=== PATIENT | male | born 1945 | race African-American/Black ===

== ENCOUNTER 2019-01-21 12:05 | Inpatient (IN) | payer MEDICARE, MEDICAID ==
[~2019-01-21] VITALS: Ht 175.3 cm; Wt 75.5 kg
[~2019-01-21 12:05] MED LIST: AMLO10TA80 PO; ASPI-1159 PO; CHOL100044 PO; DOCU-138 PO; DONE5TAB33 PO; ESOM40CA PO; MEMA10TA2 PO; METO-539 PO; RISP0.5T19 PO; ROSU10TA PO; SERT25TA PO; TAMS-11 PO
[2019-01-21] MEDS ORDERED: ONDANSETRON HCL 4MG/2ML INJ IV STA (12:20)
[2019-01-21] MEDS ORDERED: CEFEPIME 1,000 MG in DEXTROSE 5% WATER 50 ML IV STA (12:20)
[2019-01-21] MEDS ORDERED: VANCOMYCIN 1 G PREMIX 200 ML IV ONE (12:30)
[2019-01-21 13:20] LABS: BASOPHILS % 0.8 % (0.0-2.0); EOSINOPHILS % 5.9 % (0.0-5.0); HEMATOCRIT. 32.8 % (42.0-52.0); HEMOGLOBIN. 10.7 g/dL (14.0-18.0); LYMPHOCYTES % 25.9 % (20.0-50.0); MEAN CORPUSCULAR HEMOGLOBIN 31.7 pg (28.0-32.0); MEAN CORPUSCULAR VOLUME 96.7 fL (80.0-94.0); MEAN PLATELET VOLUME 8.3 fl (7.4-10.4); MONOCYTES % 9.6 % (2.0-8.0); NEUTROPHILS % 57.8 % (40.0-76.0); PLATELET 203 x1000/uL (130-400); RED BLOOD CELL COUNT 3.39 mill/uL (4.7-6.1); RED CELL DISTRIBUTION WIDTH 15.5 % (11.6-14.6)
[2019-01-21 13:25] LABS: INR 1.1; PROTHROMBIN TIME 11.2 sec (9.1-11.1)
[2019-01-21 13:26] LABS: CHLORIDE 102 mEq/L (98-107)
[2019-01-21] MEDS ORDERED: ACETAMINOPHEN 325MG TABLET PO PRN (17:45)
[2019-01-21] MEDS ORDERED: HYDROCODONE/ACETAMINOPHEN 5/325MG TABLET PO PRN (17:45)
[2019-01-21] MEDS ORDERED: LORAZEPAM 0.5MG TABLET PO PRN (17:45)
[2019-01-21] MEDS ORDERED: DOCUSATE SODIUM 100MG CAPSULE PO PRN (17:45)
[2019-01-21] MEDS ORDERED: ONDANSETRON HCL 4MG/2ML INJ IV PRN (17:45)
[2019-01-21] MEDS ORDERED: IPRATROPIUM/ALBUTEROL 0.5-3(2.5)MG/3ML NEB INH PRN (17:45)
[2019-01-21] MEDS ORDERED: TAMSULOSIN HCL 0.4MG SR CAPSULE PO NR (20:30)
[2019-01-21] MEDS: METOPROLOL TARTRATE 25MG TABLET PO SCH (21:00)
[2019-01-21] MEDS: CLONIDINE 0.1MG TABLET PO PRN (21:00)
[2019-01-21] MEDS ORDERED: DONEPEZIL HCL 5MG TABLET PO NR (21:00)
[2019-01-21 22:02] LABS: METHADONE URINE SCREEN NEGATIVE (NEGATIVE); OPIATES URINE SCREEN NEGATIVE (NEGATIVE)
[2019-01-21 22:03] LABS: *AMPHETAMINES SCREEN URINE NEGATIVE (NEGATIVE); *BARBITURATES SCREEN URINE NEGATIVE (NEGATIVE); *BENZODIAZEPINES SCREEN URINE NEGATIVE (NEGATIVE); *COCAINE SCREEN URINE NEGATIVE (NEGATIVE); CANNABINOID URINE SCREEN NEGATIVE (NEGATIVE); PHENCYCLIDINE URINE SCREEN NEGATIVE (NEGATIVE)
[2019-01-22] VITALS (17 sets, daily range): BP systolic 136–186; BP diastolic 80–96
[2019-01-22 05:44] LABS: BASOPHILS % 0.8 % (0.0-2.0); EOSINOPHILS % 6.5 % (0.0-5.0); HEMATOCRIT. 33.5 % (42.0-52.0); HEMOGLOBIN. 11.1 g/dL (14.0-18.0); LYMPHOCYTES % 27.6 % (20.0-50.0); MEAN CORPUSCULAR HEMOGLOBIN 31.8 pg (28.0-32.0); MEAN CORPUSCULAR VOLUME 96.3 fL (80.0-94.0); MEAN PLATELET VOLUME 8.3 fl (7.4-10.4); MONOCYTES % 10.2 % (2.0-8.0); NEUTROPHILS % 54.9 % (40.0-76.0); PLATELET 183 x1000/uL (130-400); RED BLOOD CELL COUNT 3.48 mill/uL (4.7-6.1); RED CELL DISTRIBUTION WIDTH 15.5 % (11.6-14.6)
[2019-01-22 05:50] LABS: PHOSPHORUS 4.8 mg/dL (2.5-4.9)
[2019-01-22 06:09] LABS: FOLIC ACID (FOLATE) SERUM 9.5 ng/mL (>5.38)
[2019-01-22] MEDS ORDERED: LIDOCAINE HCL 1% 20ML VIAL (Pyxis) INJ ONE ×2 (09:38→10:05)
[2019-01-22] MEDS ORDERED: SODIUM BICARBONATE 4% (2.4MEQ) 5ML VIAL IV ONE (09:52)
[2019-01-22] MEDS ORDERED: IOHEXOL-300 100 ML BOTTLE ONE (09:52)
[2019-01-22] MEDS ORDERED: FENTANYL CITRATE/PF 50MCG/ML 2ML VIAL ONE (10:48)
[2019-01-22] MEDS ORDERED: MIDAZOLAM HCL 2 MG/2 ML VIAL ONE (11:09)
[2019-01-22] MEDS ORDERED: MIDAZOLAM HCL 2 MG/2 ML VIAL IV ONE (11:30)
[2019-01-22] MEDS ORDERED: FENTANYL CITRATE/PF 50MCG/ML 2ML VIAL IV ONE (11:30)
[2019-01-22] MEDS: CHOLECALCIFEROL (D3) 1000 UNIT TABLET PO SCH (14:10)
[2019-01-22] MEDS: SERTRALINE HCL 25MG TABLET PO SCH (14:11)
[2019-01-22] MEDS: MEMANTINE HCL 10MG TABLET PO SCH ×2 (14:11→17:39)
[2019-01-22] MEDS: OMEPRAZOLE 20MG CAPSULE EXTENDED RELEASE PO SCH (14:11)
[2019-01-22] MEDS: DOCUSATE SODIUM 100MG CAPSULE PO SCH (14:11)
[2019-01-22] MEDS: ASPIRIN 81MG TABLET PO SCH (14:12)
[2019-01-22] MEDS: RISPERIDONE 0.5MG TABLET PO SCH (14:12)
[2019-01-22] MEDS: AMLODIPINE 10MG TABLET PO SCH (14:13)
[2019-01-22] MEDS: METOPROLOL TARTRATE 25MG TABLET PO SCH (21:00)
[2019-01-22] MEDS: DONEPEZIL HCL 5MG TABLET PO SCH (21:59)
[2019-01-22] MEDS: TAMSULOSIN HCL 0.4MG SR CAPSULE PO SCH (22:00)
[2019-01-23] VITALS: BP 142/80
[2019-01-23 04:00] VITALS: BP 144/89
[2019-01-23] MEDS: OMEPRAZOLE 20MG CAPSULE EXTENDED RELEASE PO SCH (06:28)
[2019-01-23 07:03] LABS: EOSINOPHILS % 6.5 % (0.0-5.0); HEMATOCRIT. 31.7 % (42.0-52.0); HEMOGLOBIN. 10.5 g/dL (14.0-18.0); LYMPHOCYTES % 23.5 % (20.0-50.0); MEAN CORPUSCULAR HEMOGLOBIN 31.9 pg (28.0-32.0); MEAN CORPUSCULAR VOLUME 96.1 fL (80.0-94.0); MEAN PLATELET VOLUME 8.2 fl (7.4-10.4); MONOCYTES % 9.3 % (2.0-8.0); NEUTROPHILS % 59.7 % (40.0-76.0); PLATELET 185 x1000/uL (130-400); RED CELL DISTRIBUTION WIDTH 15.5 % (11.6-14.6)
[2019-01-23 08:04] VITALS: BP 131/67
[2019-01-23] MEDS: METOPROLOL TARTRATE 25MG TABLET PO SCH ×2 (08:53→22:22)
[2019-01-23] MEDS: AMLODIPINE 10MG TABLET PO SCH (08:53)
[2019-01-23] MEDS: SERTRALINE HCL 25MG TABLET PO SCH (09:02)
[2019-01-23] MEDS: MEMANTINE HCL 10MG TABLET PO SCH ×2 (09:02→16:02)
[2019-01-23] MEDS: DOCUSATE SODIUM 100MG CAPSULE PO SCH (09:02)
[2019-01-23] MEDS: RISPERIDONE 0.5MG TABLET PO SCH (09:02)
[2019-01-23] MEDS: CHOLECALCIFEROL (D3) 1000 UNIT TABLET PO SCH (09:02)
[2019-01-23] MEDS: ASPIRIN 81MG TABLET PO SCH (09:02)
[2019-01-23 12:00] VITALS: BP 127/66
[2019-01-23] MEDS ORDERED: VANCOMYCIN 1 G PREMIX 200 ML IV NR (14:30)
[2019-01-23] MEDS ORDERED: IOHEXOL-350 100 ML BOTTLE ONE (15:14)
[2019-01-23] MEDS: CLONIDINE 0.1MG TABLET PO PRN (16:02)
[2019-01-23 16:11] VITALS: BP 160/80
[2019-01-23 20:00] VITALS: BP 151/81
[2019-01-23] MEDS: TAMSULOSIN HCL 0.4MG SR CAPSULE PO SCH (22:22)
[2019-01-23] MEDS: DONEPEZIL HCL 5MG TABLET PO SCH (22:22)
[2019-01-24] VITALS: BP 129/79
[2019-01-24 04:00] VITALS: BP 152/50
[2019-01-24] MEDS: OMEPRAZOLE 20MG CAPSULE EXTENDED RELEASE PO SCH (06:32)
[2019-01-24 08:00] VITALS: BP 162/84
[2019-01-24] MEDS: MEMANTINE HCL 10MG TABLET PO SCH ×2 (09:19→18:00)
[2019-01-24] MEDS: DOCUSATE SODIUM 100MG CAPSULE PO SCH (09:19)
[2019-01-24] MEDS: RISPERIDONE 0.5MG TABLET PO SCH (09:19)
[2019-01-24] MEDS: CHOLECALCIFEROL (D3) 1000 UNIT TABLET PO SCH (09:20)
[2019-01-24] MEDS: ASPIRIN 81MG TABLET PO SCH (09:20)
[2019-01-24] MEDS: METOPROLOL TARTRATE 25MG TABLET PO SCH ×2 (09:20→21:53)
[2019-01-24] MEDS: SERTRALINE HCL 25MG TABLET PO SCH (09:21)
[2019-01-24] MEDS: AMLODIPINE 10MG TABLET PO SCH (09:21)
[2019-01-24 12:00] VITALS: BP 149/82
[2019-01-24 16:00] VITALS: BP 149/86
[2019-01-24 20:00] VITALS: BP 134/69
[2019-01-24] MEDS: TAMSULOSIN HCL 0.4MG SR CAPSULE PO SCH (21:53)
[2019-01-24] MEDS: DONEPEZIL HCL 5MG TABLET PO SCH (21:53)
[2019-01-25] VITALS: BP 123/72
[2019-01-25 04:00] VITALS: BP 135/71
[2019-01-25 06:24] LABS: BASOPHILS % 0.6 % (0.0-2.0); HEMOGLOBIN. 10.4 g/dL (14.0-18.0); LYMPHOCYTES % 36.1 % (20.0-50.0); MEAN CORPUSCULAR VOLUME 95.3 fL (80.0-94.0); MEAN PLATELET VOLUME 8.3 fl (7.4-10.4); MONOCYTES % 10.4 % (2.0-8.0); NEUTROPHILS % 45.9 % (40.0-76.0); PLATELET 161 x1000/uL (130-400); RED BLOOD CELL COUNT 3.26 mill/uL (4.7-6.1); RED CELL DISTRIBUTION WIDTH 15.2 % (11.6-14.6)
[2019-01-25 08:00] VITALS: BP 123/90
[2019-01-25] MEDS: RISPERIDONE 0.5MG TABLET PO SCH (09:00)
[2019-01-25] MEDS: DOCUSATE SODIUM 100MG CAPSULE PO SCH (09:00)
[2019-01-25] MEDS: ASPIRIN 81MG TABLET PO SCH (09:00)
[2019-01-25] MEDS: SERTRALINE HCL 25MG TABLET PO SCH (09:00)
[2019-01-25] MEDS: MEMANTINE HCL 10MG TABLET PO SCH ×2 (09:00→17:39)
[2019-01-25] MEDS: FAMOTIDINE 20MG TABLET PO SCH (09:00)
[2019-01-25] MEDS: AMLODIPINE 10MG TABLET PO SCH (09:00)
[2019-01-25] MEDS: CHOLECALCIFEROL (D3) 1000 UNIT TABLET PO SCH (09:00)
[2019-01-25] MEDS: METOPROLOL TARTRATE 25MG TABLET PO SCH ×2 (09:00→20:39)
[2019-01-25 12:00] VITALS: BP 159/94
[2019-01-25 16:00] VITALS: BP 164/85
[2019-01-25] MEDS: CLONIDINE 0.1MG TABLET PO PRN (17:40)
[2019-01-25 20:00] VITALS: BP 136/74
[2019-01-25] MEDS: DONEPEZIL HCL 5MG TABLET PO SCH (20:39)
[2019-01-25] MEDS: TAMSULOSIN HCL 0.4MG SR CAPSULE PO SCH (20:39)
[2019-01-25] MEDS ORDERED: VANCOMYCIN 1 G PREMIX 200 ML IV NR (22:00)
[2019-01-26] VITALS: BP 119/74
[2019-01-26 04:00] VITALS: BP 143/72
[2019-01-26 08:00] VITALS: BP 158/84
[2019-01-26 08:36] LABS: BASOPHILS % 1.6 % (0.0-2.0); EOSINOPHILS % 7.8 % (0.0-5.0); HEMATOCRIT. 30.8 % (42.0-52.0); HEMOGLOBIN. 10.4 g/dL (14.0-18.0); MEAN CORPUSCULAR HEMOGLOBIN 31.8 pg (28.0-32.0); MEAN CORPUSCULAR VOLUME 93.8 fL (80.0-94.0); MEAN PLATELET VOLUME 7.3 fl (7.4-10.4); NEUTROPHILS % 48.6 % (40.0-76.0); PLATELET 157 x1000/uL (130-400); RED BLOOD CELL COUNT 3.28 mill/uL (4.7-6.1); RED CELL DISTRIBUTION WIDTH 14.9 % (11.6-14.6)
[2019-01-26] MEDS: MEMANTINE HCL 10MG TABLET PO SCH ×2 (08:56→18:28)
[2019-01-26] MEDS: DOCUSATE SODIUM 100MG CAPSULE PO SCH (08:56)
[2019-01-26] MEDS: FAMOTIDINE 20MG TABLET PO SCH (08:56)
[2019-01-26] MEDS: CHOLECALCIFEROL (D3) 1000 UNIT TABLET PO SCH (08:56)
[2019-01-26] MEDS: RISPERIDONE 0.5MG TABLET PO SCH (08:56)
[2019-01-26] MEDS: SERTRALINE HCL 25MG TABLET PO SCH (08:56)
[2019-01-26] MEDS: ASPIRIN 81MG TABLET PO SCH (11:58)
[2019-01-26] MEDS: AMLODIPINE 10MG TABLET PO SCH (11:58)
[2019-01-26] MEDS: METOPROLOL TARTRATE 25MG TABLET PO SCH ×2 (11:59→20:43)
[2019-01-26 12:00] VITALS: BP 159/89
[2019-01-26 16:00] VITALS: BP 136/78
[2019-01-26 20:00] VITALS: BP_SYST 89
[2019-01-26] MEDS: DONEPEZIL HCL 5MG TABLET PO SCH (20:39)
[2019-01-26] MEDS: TAMSULOSIN HCL 0.4MG SR CAPSULE PO SCH (20:39)
[2019-01-27] VITALS: BP 155/89
[2019-01-27 02:19] VITALS: BP 142/72
[2019-01-27 04:00] VITALS: BP 154/84
[2019-01-27 06:43] LABS: BASOPHILS % 0.8 % (0.0-2.0); EOSINOPHILS % 7.5 % (0.0-5.0); HEMATOCRIT. 33.3 % (42.0-52.0); LYMPHOCYTES % 37.1 % (20.0-50.0); MEAN CORPUSCULAR HEMOGLOBIN 31.2 pg (28.0-32.0); MEAN CORPUSCULAR VOLUME 94.7 fL (80.0-94.0); MEAN PLATELET VOLUME 8.2 fl (7.4-10.4); NEUTROPHILS % 45.6 % (40.0-76.0); PLATELET 157 x1000/uL (130-400); RED BLOOD CELL COUNT 3.52 mill/uL (4.7-6.1); RED CELL DISTRIBUTION WIDTH 15.2 % (11.6-14.6)
[2019-01-27] MEDS: METOPROLOL TARTRATE 25MG TABLET PO SCH (08:40)
[2019-01-27] MEDS: DOCUSATE SODIUM 100MG CAPSULE PO SCH (08:40)
[2019-01-27] MEDS: ASPIRIN 81MG TABLET PO SCH (08:40)
[2019-01-27] MEDS: FAMOTIDINE 20MG TABLET PO SCH (08:41)
[2019-01-27] MEDS: CHOLECALCIFEROL (D3) 1000 UNIT TABLET PO SCH (08:41)
[2019-01-27] MEDS: SERTRALINE HCL 25MG TABLET PO SCH (08:41)
[2019-01-27] MEDS: AMLODIPINE 10MG TABLET PO SCH (08:42)
[2019-01-27] MEDS: RISPERIDONE 0.5MG TABLET PO SCH (08:42)
[2019-01-27] MEDS: MEMANTINE HCL 10MG TABLET PO SCH (08:42)
== END 2019-01-27 09:16 | disposition home or self-care (01) | DRG 182 ==
LOC: ER 12:05 → 8WST 20:34 → EDBEDREQ 20:37 → EDBEDREQTM 20:37 → EDBEDREQSVC 20:37 → EDBEDREQ 01-22 03:21 → EDBEDREQSVC 01-22 03:21 → CANRESERV 01-22 13:54 → ENRESERV 01-22 13:54
PROVIDERS: ADMIT Internal Medicine; ATTEND Internal Medicine
PROC: 05PYX3Z Removal of Infusion Device from Upper Vein, External Approach (ICD-10-PCS; 2019-01-21)
PROC: 05743ZZ Dilation of Left Innominate Vein, Percutaneous Approach (ICD-10-PCS; principal; 2019-01-22)
PROC: B5181ZZ Fluoroscopy of Superior Vena Cava using Low Osmolar Contrast (ICD-10-PCS; 2019-01-22)
PROC: B51W1ZZ Fluoroscopy of Dialysis Shunt/Fistula using Low Osmolar Contrast (ICD-10-PCS; 2019-01-22)
PROC: B31J1ZZ Fluoroscopy of Left Upper Extremity Arteries using Low Osmolar Contrast (ICD-10-PCS; 2019-01-22)
PROC: 5A1D70Z Performance of Urinary Filtration, Intermittent, Less than 6 Hours Per Day (ICD-10-PCS; 2019-01-22)
PROC: 5A1D70Z Performance of Urinary Filtration, Intermittent, Less than 6 Hours Per Day (ICD-10-PCS; 2019-01-25)
PROC: 5A1D70Z Performance of Urinary Filtration, Intermittent, Less than 6 Hours Per Day (ICD-10-PCS; 2019-01-26)
DX: T82.838A Hemorrhage due to vascular prosthetic devices, implants and grafts, initial encounter (principal); D72.1 Eosinophilia; I12.0 Hypertensive chronic kidney disease with stage 5 chronic kidney disease or end stage renal disease; E87.5 Hyperkalemia; I71.2 Thoracic aortic aneurysm, without rupture; F20.9 Schizophrenia, unspecified; L03.114 Cellulitis of left upper limb; N18.6 End stage renal disease; E78.00 Pure hypercholesterolemia, unspecified; E78.5 Hyperlipidemia, unspecified; D53.9 Nutritional anemia, unspecified; D63.8 Anemia in other chronic diseases classified elsewhere; R62.50 Unspecified lack of expected normal physiological development in childhood; I87.1 Compression of vein; R74.0 Nonspecific elevation of levels of transaminase and lactic acid dehydrogenase [LDH]; Y83.2 Surgical operation with anastomosis, bypass or graft as the cause of abnormal reaction of the patient, or of later complication, without mention of misadventure at the time of the procedure; Y92.89 Other specified places as the place of occurrence of the external cause; Z99.2 Dependence on renal dialysis; Z79.82 Long term (current) use of aspirin; Z88.0 Allergy status to penicillin; Z79.899 Other long term (current) drug therapy; Z86.73 Personal history of transient ischemic attack (TIA), and cerebral infarction without residual deficits
CPT/HCPCS: 36415; 36902; 36907; 71045; 71275; 76937; 80048; 80061; 80076; 80202; 80305; 82607; 82728; 82746; 83036; 83540; 83550; 83605; 83735; 84100; 84145; 84443; 84484; 93005; 93970; 93971; 96365; 96366; 96368; 96375; 99152; 99153; 99285; C1725; C1766; C1769; C1887; J0692; J1644; J2250; J2405; J3010; J3370; J3490; J7050; J7060; Q9967; G0500

== ENCOUNTER 2019-02-14 15:18 | Inpatient (IN) | payer MEDICARE, MEDICAID ==
[~2019-02-14] VITALS: Ht 175.3 cm; Wt 77.6 kg
[2019-02-14 16:25] LABS: BASOPHILS % 0.8 % (0.0-2.0); EOSINOPHILS % 4.6 % (0.0-5.0); HEMATOCRIT. 30.6 % (42.0-52.0); HEMOGLOBIN. 10.1 g/dL (14.0-18.0); MEAN CORPUSCULAR HEMOGLOBIN 31.9 pg (28.0-32.0); MEAN CORPUSCULAR VOLUME 96.2 fL (80.0-94.0); MEAN PLATELET VOLUME 7.4 fl (7.4-10.4); MONOCYTES % 12.6 % (2.0-8.0); PLATELET 147 x1000/uL (130-400); RED BLOOD CELL COUNT 3.18 mill/uL (4.7-6.1); RED CELL DISTRIBUTION WIDTH 16.1 % (11.6-14.6)
[2019-02-14 16:31] LABS: CHLORIDE 102 mEq/L (98-107); INR 1.1; PROTHROMBIN TIME 11.4 sec (9.6-11.0)
[2019-02-14] MEDS ORDERED: ACETAMINOPHEN 325MG TABLET PO PRN (18:00)
[2019-02-14] MEDS ORDERED: DIPHENHYDRAMINE 50MG/ML VIAL IV PRN (18:00)
[2019-02-14] MEDS ORDERED: ONDANSETRON HCL 4MG/2ML INJ IV PRN (18:00)
[2019-02-14] MEDS ORDERED: CLONIDINE 0.1MG TABLET PO PRN (18:00)
[2019-02-14] MEDS ORDERED: HYDROCODONE/ACETAMINOPHEN 5/325MG TABLET PO PRN (18:00)
[2019-02-14] MEDS ORDERED: DOCUSATE SODIUM 100MG CAPSULE PO PRN (18:00)
[2019-02-14] MEDS ORDERED: HYDROMORPHONE HCL/PF 2MG/ML CPJ IV PRN (18:30)
[2019-02-14] MEDS ORDERED: DONEPEZIL HCL 10MG TABLET PO NR (19:30)
[2019-02-14] MEDS ORDERED: MEMANTINE HCL 10MG TABLET PO NR (20:25)
[2019-02-14] MEDS ORDERED: METOPROLOL TARTRATE 25MG TABLET PO NR (20:26)
[2019-02-14 21:35] VITALS: BP 149/100
[2019-02-14 22:21] VITALS: BP 149/100
[2019-02-15] VITALS (17 sets, daily range): BP systolic 114–159; BP diastolic 61–93
[2019-02-15 07:01] LABS: BASOPHILS % 0.7 % (0.0-2.0); EOSINOPHILS % 4.9 % (0.0-5.0); HEMATOCRIT. 25.9 % (42.0-52.0); HEMOGLOBIN. 8.9 g/dL (14.0-18.0); LYMPHOCYTES % 17.2 % (20.0-50.0); MEAN CORPUSCULAR VOLUME 95.7 fL (80.0-94.0); MEAN PLATELET VOLUME 7.7 fl (7.4-10.4); MONOCYTES % 9.8 % (2.0-8.0); NEUTROPHILS % 67.4 % (40.0-76.0); PLATELET 128 x1000/uL (130-400); RED BLOOD CELL COUNT 2.71 mill/uL (4.7-6.1); RED CELL DISTRIBUTION WIDTH 16.4 % (11.6-14.6)
[2019-02-15 07:40] LABS: CHLORIDE 104 mEq/L (98-107)
[2019-02-15] MEDS: CLINDAMYCIN 600MG PREMIX 50 ML IV NR ×2 (07:45→11:30)
[2019-02-15] MEDS ORDERED: CLINDAMYCIN 600 MG in DEXTROSE 5% WATER 50 ML IV ONE (07:45)
[2019-02-15] MEDS ORDERED: FENTANYL CITRATE/PF 50MCG/ML 2ML VIAL ONE (10:48)
[2019-02-15] MEDS ORDERED: SODIUM BICARBONATE 4% (2.4MEQ) 5ML VIAL IV ONE (10:49)
[2019-02-15] MEDS ORDERED: IOHEXOL-300 100 ML BOTTLE ONE (10:49)
[2019-02-15] MEDS ORDERED: LIDOCAINE HCL 1% 20ML VIAL (Pyxis) INJ ONE (10:49)
[2019-02-15] MEDS ORDERED: FENTANYL CITRATE/PF 50MCG/ML 2ML VIAL IV ONE (12:00)
[2019-02-15] MEDS: AMLODIPINE 10MG TABLET PO SCH (13:58)
[2019-02-15] MEDS: MEMANTINE HCL 10MG TABLET PO SCH (13:58)
[2019-02-15] MEDS: TAMSULOSIN HCL 0.4MG SR CAPSULE PO SCH (13:58)
[2019-02-15] MEDS: DONEPEZIL HCL 10MG TABLET PO SCH (13:59)
[2019-02-15] MEDS: METOPROLOL TARTRATE 25MG TABLET PO SCH (13:59)
[2019-02-15] MEDS: SERTRALINE HCL 25MG TABLET PO SCH (13:59)
[2019-02-16] VITALS (7 sets, daily range): BP systolic 125–165; BP diastolic 70–92
[2019-02-16] MEDS: MEMANTINE HCL 10MG TABLET PO SCH ×3 (00:34→20:59)
[2019-02-16] MEDS: METOPROLOL TARTRATE 25MG TABLET PO SCH ×3 (00:35→20:59)
[2019-02-16] MEDS: SERTRALINE HCL 25MG TABLET PO SCH (08:53)
[2019-02-16] MEDS: DONEPEZIL HCL 10MG TABLET PO SCH (08:54)
[2019-02-16] MEDS: AMLODIPINE 10MG TABLET PO SCH (08:55)
[2019-02-16] MEDS: TAMSULOSIN HCL 0.4MG SR CAPSULE PO SCH (08:55)
[2019-02-16 09:52] LABS: BASOPHILS % 0.8 % (0.0-2.0); EOSINOPHILS % 3.3 % (0.0-5.0); HEMATOCRIT. 28.4 % (42.0-52.0); HEMOGLOBIN. 9.6 g/dL (14.0-18.0); LYMPHOCYTES % 25.2 % (20.0-50.0); MEAN CORPUSCULAR VOLUME 94.9 fL (80.0-94.0); MEAN PLATELET VOLUME 7.8 fl (7.4-10.4); MONOCYTES % 11.1 % (2.0-8.0); NEUTROPHILS % 59.6 % (40.0-76.0); PLATELET 132 x1000/uL (130-400); RED CELL DISTRIBUTION WIDTH 16.1 % (11.6-14.6)
[2019-02-17] VITALS (7 sets, daily range): BP systolic 144–167; BP diastolic 75–91
[2019-02-17 07:07] LABS: BASOPHILS % 0.9 % (0.0-2.0); EOSINOPHILS % 4.7 % (0.0-5.0); LYMPHOCYTES % 22.7 % (20.0-50.0); MEAN CORPUSCULAR VOLUME 95.4 fL (80.0-94.0); MEAN PLATELET VOLUME 7.6 fl (7.4-10.4); MONOCYTES % 12.9 % (2.0-8.0); NEUTROPHILS % 58.8 % (40.0-76.0); PLATELET 132 x1000/uL (130-400); RED BLOOD CELL COUNT 2.83 mill/uL (4.7-6.1)
[2019-02-17] MEDS: AMLODIPINE 10MG TABLET PO SCH (09:23)
[2019-02-17] MEDS: SERTRALINE HCL 25MG TABLET PO SCH (09:23)
[2019-02-17] MEDS: TAMSULOSIN HCL 0.4MG SR CAPSULE PO SCH (09:24)
[2019-02-17] MEDS: DONEPEZIL HCL 10MG TABLET PO SCH (09:24)
[2019-02-17] MEDS: METOPROLOL TARTRATE 25MG TABLET PO SCH ×2 (09:24→21:38)
[2019-02-17] MEDS: MEMANTINE HCL 10MG TABLET PO SCH ×2 (09:29→21:38)
[2019-02-18] VITALS: BP 152/82
[2019-02-18 05:48] VITALS: BP 159/84
[2019-02-18 08:00] VITALS: BP 165/91
[2019-02-18] MEDS: METOPROLOL TARTRATE 25MG TABLET PO SCH (09:21)
[2019-02-18] MEDS: MEMANTINE HCL 10MG TABLET PO SCH (09:21)
[2019-02-18] MEDS: AMLODIPINE 10MG TABLET PO SCH (09:21)
[2019-02-18] MEDS: SERTRALINE HCL 25MG TABLET PO SCH (09:21)
[2019-02-18] MEDS: TAMSULOSIN HCL 0.4MG SR CAPSULE PO SCH (09:21)
[2019-02-18] MEDS: DONEPEZIL HCL 10MG TABLET PO SCH (09:22)
== END 2019-02-18 10:31 | disposition home health service (06) | DRG 182 ==
LOC: ER 15:52 → 7WST 15:57 → EDBEDREQ 17:24 → SUPCPDRO 17:59 → ENRESERV 20:54
PROVIDERS: ADMIT Hospitalist; ATTEND Hospitalist
PROC: 05743DZ Dilation of Left Innominate Vein with Intraluminal Device, Percutaneous Approach (ICD-10-PCS; principal; 2019-02-15)
PROC: B5181ZZ Fluoroscopy of Superior Vena Cava using Low Osmolar Contrast (ICD-10-PCS; 2019-02-15)
PROC: B51W1ZZ Fluoroscopy of Dialysis Shunt/Fistula using Low Osmolar Contrast (ICD-10-PCS; 2019-02-15)
PROC: 5A1D70Z Performance of Urinary Filtration, Intermittent, Less than 6 Hours Per Day (ICD-10-PCS; 2019-02-15)
PROC: 5A1D70Z Performance of Urinary Filtration, Intermittent, Less than 6 Hours Per Day (ICD-10-PCS; 2019-02-17)
DX: I87.1 Compression of vein (principal); E43 Unspecified severe protein-calorie malnutrition; I13.2 Hypertensive heart and chronic kidney disease with heart failure and with stage 5 chronic kidney disease, or end stage renal disease; E11.22 Type 2 diabetes mellitus with diabetic chronic kidney disease; N18.6 End stage renal disease; I50.33 Acute on chronic diastolic (congestive) heart failure; Z99.2 Dependence on renal dialysis; D64.9 Anemia, unspecified; E78.5 Hyperlipidemia, unspecified; Y84.1 Kidney dialysis as the cause of abnormal reaction of the patient, or of later complication, without mention of misadventure at the time of the procedure; F03.90 Unspecified dementia, unspecified severity, without behavioral disturbance, psychotic disturbance, mood disturbance, and anxiety; F32.9 Major depressive disorder, single episode, unspecified; Z88.0 Allergy status to penicillin; Z79.82 Long term (current) use of aspirin; Z79.899 Other long term (current) drug therapy; Y92.89 Other specified places as the place of occurrence of the external cause; Z68.25 Body mass index [BMI] 25.0-25.9, adult
CPT/HCPCS: 36415; 36901; 36907; 71045; 76937; 80048; 80051; 83540; 83550; 93005; 99291; C1725; C1766; C1769; C1876; J1642; J1644; J3010; J3490; J7050; Q9967

== ENCOUNTER 2019-07-22 14:52 | Inpatient (IN) | payer MEDICARE, MEDICAID ==
[~2019-07-22] VITALS: Ht 195.6 cm; Wt 78.0 kg
[~2019-07-22 14:52] MED LIST changes: -ASPI-1159 PO; +ASPI-1393 PO; +CRES10 PO; -ROSU10TA PO
[2019-07-22] MEDS ORDERED: SODIUM CHLORIDE 0.9% 1000ML BAG (SEPSIS BOLUS) IV ONE (15:15)
[2019-07-22] MEDS ORDERED: VANCOMYCIN 1 G PREMIX 200 ML IV ONE (15:15)
[2019-07-22] MEDS ORDERED: MEROPENEM 1,000 MG in SODIUM CHLORIDE 0.9% 100 ML IV ONE (15:15)
[2019-07-22 16:11] LABS: BASOPHILS % 0.3 % (0.0-2.0); HEMATOCRIT. 37.5 % (42.0-52.0); HEMOGLOBIN. 12.3 g/dL (14.0-18.0); LYMPHOCYTES % 15.5 % (20.0-50.0); MEAN CORPUSCULAR HEMOGLOBIN 31.3 pg (28.0-32.0); MEAN CORPUSCULAR VOLUME 95.7 fL (80.0-94.0); MEAN PLATELET VOLUME 8.5 fl (7.4-10.4); MONOCYTES % 6.9 % (2.0-8.0); NEUTROPHILS % 77.3 % (40.0-76.0); PLATELET 151 x1000/uL (130-400); RED BLOOD CELL COUNT 3.92 mill/uL (4.7-6.1); RED CELL DISTRIBUTION WIDTH 17.6 % (11.6-14.6)
[2019-07-22 16:16] LABS: CHLORIDE 98 mEq/L (98-107)
[2019-07-22 16:17] LABS: INR 1.2; PROTHROMBIN TIME 11.9 sec (9.6-11.0)
[2019-07-22 17:47] LABS: CLARITY URINE TURBID (CLEAR); COLOR URINE DARK YELLOW (YELLOW); KETONES URINE TRACE (NEGATIVE); LEUKOCYTE ESTERASE URINE 1+ (NEGATIVE); NITRITE URINE NEGATIVE (NEGATIVE); OCCULT BLOOD URINE 3+ (NEGATIVE); PH URINE 5.5 (4.5-8.0); PROTEIN URINE 4+ (NEGATIVE); SPECIFIC GRAVITY URINE 1.031 (1.005-1.030)
[2019-07-23] VITALS: BP 177/104
[2019-07-23] MEDS ORDERED: clotrimazole 1% TOP (00:21)
[2019-07-23] MEDS ORDERED: FERR325T6 PO (00:21)
[2019-07-23] MEDS ORDERED: CLONIDINE 0.1MG TABLET PO PRN (01:30)
[2019-07-23] MEDS ORDERED: ONDANSETRON HCL 4MG/2ML INJ IV PRN (01:30)
[2019-07-23] MEDS ORDERED: ACETAMINOPHEN 325MG TABLET PO PRN (01:30)
[2019-07-23] MEDS ORDERED: DOCUSATE SODIUM 100MG CAPSULE PO PRN (01:30)
[2019-07-23] MEDS ORDERED: PIPERACILLIN/TAZ 3.375G PREMIX 50 ML IV SCH (01:30)
[2019-07-23] MEDS ORDERED: IPRATROPIUM/ALBUTEROL 0.5-3(2.5)MG/3ML NEB NEB PRN (01:30)
[2019-07-23] MEDS: CLONIDINE 0.1MG TABLET PO PRN (02:19)
[2019-07-23] MEDS ORDERED: DEXTROSE 50% WATER 50ML SYRINGE IV PRN (03:45)
[2019-07-23] MEDS: PIPERACILLIN/TAZOBACTAM 2.25 G in DEXTROSE 5% WATER 50 ML IV SCH ×3 (03:49→18:49)
[2019-07-23 04:00] VITALS: BP 158/92
[2019-07-23] MEDS: BLOOD SUGAR DIAGNOSTIC STRIP TEST SCH ×4 (06:51→22:06)
[2019-07-23 07:12] LABS: BASOPHILS % 0.2 % (0.0-2.0); HEMATOCRIT. 29.9 % (42.0-52.0); HEMOGLOBIN. 9.8 g/dL (14.0-18.0); LYMPHOCYTES % 7.6 % (20.0-50.0); MEAN CORPUSCULAR HEMOGLOBIN 31.4 pg (28.0-32.0); MEAN CORPUSCULAR VOLUME 96.1 fL (80.0-94.0); MEAN PLATELET VOLUME 8.5 fl (7.4-10.4); MONOCYTES % 7.2 % (2.0-8.0); PLATELET 130 x1000/uL (130-400); RED BLOOD CELL COUNT 3.11 mill/uL (4.7-6.1)
[2019-07-23 08:00] VITALS: BP 137/87
[2019-07-23] MEDS: INSULIN LISPRO 100 UNITS/ML SUBCUT SCH ×4 (08:10→21:00)
[2019-07-23 08:16] LABS: CREATINE KINASE MB FRACTION 1.7 ng/mL (0.5-3.6)
[2019-07-23] MEDS: METOPROLOL TARTRATE 25MG TABLET PO SCH ×3 (09:36→21:54)
[2019-07-23] MEDS: HEPARIN 5000 UNITS/ML VIAL SUBCUT SCH ×2 (09:38→21:57)
[2019-07-23 09:45] LABS: *BENZODIAZEPINES SCREEN URINE NEGATIVE (NEGATIVE); CANNABINOID URINE SCREEN NEGATIVE (NEGATIVE); METHADONE URINE SCREEN NEGATIVE (NEGATIVE); OPIATES URINE SCREEN NEGATIVE (NEGATIVE)
[2019-07-23 09:47] LABS: *BARBITURATES SCREEN URINE NEGATIVE (NEGATIVE)
[2019-07-23 09:48] LABS: *COCAINE SCREEN URINE NEGATIVE (NEGATIVE)
[2019-07-23 09:52] LABS: *AMPHETAMINES SCREEN URINE NEGATIVE (NEGATIVE)
[2019-07-23] MEDS: ASPIRIN 81MG TABLET PO SCH (10:30)
[2019-07-23 10:51] LABS: PHENCYCLIDINE URINE SCREEN NEGATIVE (NEGATIVE)
[2019-07-23 12:00] VITALS: BP 145/95
[2019-07-23 16:00] VITALS: BP 144/89
[2019-07-23] MEDS ORDERED: VANCOMYCIN 1 G PREMIX 200 ML IV NR (18:00)
[2019-07-23 18:18] LABS: CREATINE KINASE MB FRACTION 1.9 ng/mL (0.5-3.6)
[2019-07-23 20:00] VITALS: BP 149/87
[2019-07-24] VITALS: BP 159/92
[2019-07-24 04:00] VITALS: BP 152/91
[2019-07-24] MEDS: PIPERACILLIN/TAZOBACTAM 2.25 G in DEXTROSE 5% WATER 50 ML IV SCH (04:06)
[2019-07-24] MEDS: BLOOD SUGAR DIAGNOSTIC STRIP TEST SCH ×4 (06:15→21:35)
[2019-07-24 08:00] VITALS: BP 176/107
[2019-07-24] MEDS: INSULIN LISPRO 100 UNITS/ML SUBCUT SCH ×3 (08:10→21:00)
[2019-07-24] MEDS ORDERED: VANCOMYCIN 1 G PREMIX 200 ML IV SCH (10:00)
[2019-07-24] MEDS: HEPARIN 5000 UNITS/ML VIAL SUBCUT SCH ×2 (10:16→21:34)
[2019-07-24] MEDS: METOPROLOL TARTRATE 50MG TABLET PO SCH ×2 (10:17→21:33)
[2019-07-24] MEDS: ASPIRIN 81MG TABLET PO SCH (10:17)
[2019-07-24 12:00] VITALS: BP 154/94
[2019-07-24] MEDS: CEFEPIME 1,000 MG in DEXTROSE 5% WATER 50 ML IV SCH (12:46)
[2019-07-24 13:34] LABS: BASOPHILS % 0.2 % (0.0-2.0); EOSINOPHILS % 0.1 % (0.0-5.0); HEMATOCRIT. 31.8 % (42.0-52.0); HEMOGLOBIN. 10.8 g/dL (14.0-18.0); LYMPHOCYTES % 9.3 % (20.0-50.0); MEAN CORPUSCULAR HEMOGLOBIN 32.4 pg (28.0-32.0); MEAN CORPUSCULAR VOLUME 95.3 fL (80.0-94.0); MEAN PLATELET VOLUME 8.5 fl (7.4-10.4); MONOCYTES % 7.6 % (2.0-8.0); NEUTROPHILS % 82.8 % (40.0-76.0); PLATELET 151 x1000/uL (130-400); RED BLOOD CELL COUNT 3.33 mill/uL (4.7-6.1); RED CELL DISTRIBUTION WIDTH 17.1 % (11.6-14.6)
[2019-07-24 16:00] VITALS: BP 160/101
[2019-07-24] MEDS: CLONIDINE 0.1MG TABLET PO PRN (16:28)
[2019-07-24 17:13] VITALS: BP 156/98
[2019-07-25 00:46] VITALS: BP 169/95
[2019-07-25] MEDS: CLONIDINE 0.1MG TABLET PO PRN (01:11)
[2019-07-25 04:00] VITALS: BP 145/87
[2019-07-25] MEDS: BLOOD SUGAR DIAGNOSTIC STRIP TEST SCH ×4 (06:06→21:43)
[2019-07-25 06:27] LABS: BASOPHILS % 0.4 % (0.0-2.0); HEMATOCRIT. 32.1 % (42.0-52.0); HEMOGLOBIN. 10.4 g/dL (14.0-18.0); LYMPHOCYTES % 8.4 % (20.0-50.0); MEAN CORPUSCULAR HEMOGLOBIN 31.2 pg (28.0-32.0); MEAN CORPUSCULAR VOLUME 95.9 fL (80.0-94.0); MEAN PLATELET VOLUME 8.9 fl (7.4-10.4); MONOCYTES % 6.6 % (2.0-8.0); NEUTROPHILS % 84.6 % (40.0-76.0); PLATELET 170 x1000/uL (130-400); RED BLOOD CELL COUNT 3.34 mill/uL (4.7-6.1); RED CELL DISTRIBUTION WIDTH 17.8 % (11.6-14.6)
[2019-07-25 08:00] VITALS: BP 168/110
[2019-07-25] MEDS: INSULIN LISPRO 100 UNITS/ML SUBCUT SCH ×4 (08:10→21:00)
[2019-07-25] MEDS: ASPIRIN 81MG TABLET PO SCH (09:53)
[2019-07-25] MEDS: METOPROLOL TARTRATE 50MG TABLET PO SCH (09:53)
[2019-07-25] MEDS: HEPARIN 5000 UNITS/ML VIAL SUBCUT SCH ×2 (09:57→20:57)
[2019-07-25] MEDS: LOSARTAN POTASSIUM 50 MG TABLET PO SCH ×2 (10:30→20:56)
[2019-07-25 12:00] VITALS: BP 174/99
[2019-07-25] MEDS: CEFEPIME 1,000 MG in DEXTROSE 5% WATER 50 ML IV SCH (12:48)
[2019-07-25 16:00] VITALS: BP 139/85
[2019-07-25] MEDS ORDERED: VANCOMYCIN 1 G PREMIX 200 ML IV NR (18:00)
[2019-07-25 20:00] VITALS: BP 142/95
[2019-07-25] MEDS: METOPROLOL TARTRATE 25MG TABLET PO SCH (20:57)
[2019-07-26] VITALS (8 sets, daily range): BP systolic 140–183; BP diastolic 76–105
[2019-07-26] MEDS: CLONIDINE 0.1MG TABLET PO PRN ×2 (06:09→09:04)
[2019-07-26 06:36] LABS: BASOPHILS % 0.1 % (0.0-2.0); HEMATOCRIT. 31.9 % (42.0-52.0); HEMOGLOBIN. 10.4 g/dL (14.0-18.0); LYMPHOCYTES % 10.3 % (20.0-50.0); MEAN CORPUSCULAR HEMOGLOBIN 31.1 pg (28.0-32.0); MEAN CORPUSCULAR VOLUME 95.3 fL (80.0-94.0); MEAN PLATELET VOLUME 8.6 fl (7.4-10.4); NEUTROPHILS % 82.6 % (40.0-76.0); PLATELET 185 x1000/uL (130-400); RED BLOOD CELL COUNT 3.35 mill/uL (4.7-6.1); RED CELL DISTRIBUTION WIDTH 17.1 % (11.6-14.6)
[2019-07-26] MEDS: BLOOD SUGAR DIAGNOSTIC STRIP TEST SCH ×4 (06:59→20:49)
[2019-07-26] MEDS: INSULIN LISPRO 100 UNITS/ML SUBCUT SCH ×4 (06:59→20:49)
[2019-07-26] MEDS: HEPARIN 5000 UNITS/ML VIAL SUBCUT SCH ×2 (09:03→20:48)
[2019-07-26] MEDS: METOPROLOL TARTRATE 25MG TABLET PO SCH (09:04)
[2019-07-26] MEDS: LOSARTAN POTASSIUM 50 MG TABLET PO SCH ×2 (09:05→20:49)
[2019-07-26] MEDS: ASPIRIN 81MG TABLET PO SCH (09:05)
[2019-07-26] MEDS: CEFEPIME 1,000 MG in DEXTROSE 5% WATER 50 ML IV SCH (10:36)
[2019-07-26] MEDS: CLONIDINE 0.1MG TABLET PO SCH ×2 (14:40→22:01)
[2019-07-26] MEDS: METOPROLOL TARTRATE 100MG TABLET PO SCH ×2 (14:41→20:48)
[2019-07-26] MEDS ORDERED: VANCOMYCIN 1 G PREMIX 200 ML IV NR (15:30)
[2019-07-26] MEDS: AMLODIPINE 5MG TABLET PO SCH (20:49)
[2019-07-27] VITALS: BP 146/86
[2019-07-27 04:00] VITALS: BP 157/89
[2019-07-27] MEDS: CLONIDINE 0.1MG TABLET PO SCH ×3 (05:36→21:36)
[2019-07-27] MEDS: BLOOD SUGAR DIAGNOSTIC STRIP TEST SCH ×3 (07:40→20:12)
[2019-07-27] MEDS: INSULIN LISPRO 100 UNITS/ML SUBCUT SCH ×3 (07:40→20:12)
[2019-07-27 08:02] VITALS: BP 136/71
[2019-07-27] MEDS: HEPARIN 5000 UNITS/ML VIAL SUBCUT SCH ×2 (08:44→21:37)
[2019-07-27] MEDS: ASPIRIN 81MG TABLET PO SCH (08:45)
[2019-07-27] MEDS: METOPROLOL TARTRATE 100MG TABLET PO SCH ×2 (08:45→20:12)
[2019-07-27] MEDS: AMLODIPINE 5MG TABLET PO SCH ×2 (08:46→20:12)
[2019-07-27] MEDS: LOSARTAN POTASSIUM 50 MG TABLET PO SCH ×2 (08:46→20:12)
[2019-07-27 10:40] LABS: BASOPHILS % 0.3 % (0.0-2.0); EOSINOPHILS % 0.9 % (0.0-5.0); HEMATOCRIT. 31.4 % (42.0-52.0); HEMOGLOBIN. 10.3 g/dL (14.0-18.0); LYMPHOCYTES % 8.9 % (20.0-50.0); MEAN CORPUSCULAR HEMOGLOBIN 31.3 pg (28.0-32.0); MEAN CORPUSCULAR VOLUME 95.3 fL (80.0-94.0); MEAN PLATELET VOLUME 8.4 fl (7.4-10.4); MONOCYTES % 7.1 % (2.0-8.0); NEUTROPHILS % 82.8 % (40.0-76.0); PLATELET 218 x1000/uL (130-400); RED BLOOD CELL COUNT 3.29 mill/uL (4.7-6.1); RED CELL DISTRIBUTION WIDTH 17.3 % (11.6-14.6)
[2019-07-27] MEDS: CEFEPIME 1,000 MG in DEXTROSE 5% WATER 50 ML IV SCH (11:54)
[2019-07-27 20:00] VITALS: BP 150/85
[2019-07-28] VITALS: BP 143/84
[2019-07-28 04:00] VITALS: BP 156/90
[2019-07-28] MEDS: CLONIDINE 0.1MG TABLET PO SCH (05:18)
[2019-07-28 07:16] LABS: BASOPHILS % 0.4 % (0.0-2.0); HEMATOCRIT. 32.3 % (42.0-52.0); HEMOGLOBIN. 10.5 g/dL (14.0-18.0); LYMPHOCYTES % 10.2 % (20.0-50.0); MEAN CORPUSCULAR VOLUME 95.2 fL (80.0-94.0); MEAN PLATELET VOLUME 7.9 fl (7.4-10.4); MONOCYTES % 6.4 % (2.0-8.0); PLATELET 233 x1000/uL (130-400); RED CELL DISTRIBUTION WIDTH 16.9 % (11.6-14.6)
[2019-07-28] MEDS: BLOOD SUGAR DIAGNOSTIC STRIP TEST SCH ×3 (07:40→21:09)
[2019-07-28 07:56] VITALS: BP 164/81
[2019-07-28] MEDS: INSULIN LISPRO 100 UNITS/ML SUBCUT SCH ×3 (08:10→21:00)
[2019-07-28] MEDS: LOSARTAN POTASSIUM 50 MG TABLET PO SCH ×2 (09:10→21:08)
[2019-07-28] MEDS: AMLODIPINE 5MG TABLET PO SCH ×2 (09:11→21:08)
[2019-07-28] MEDS: ASPIRIN 81MG TABLET PO SCH (09:11)
[2019-07-28] MEDS: CLONIDINE 0.1MG TABLET PO PRN (09:12)
[2019-07-28] MEDS: METOPROLOL TARTRATE 100MG TABLET PO SCH ×2 (09:12→21:08)
[2019-07-28] MEDS: HEPARIN 5000 UNITS/ML VIAL SUBCUT SCH ×2 (09:13→21:09)
[2019-07-28 11:52] VITALS: BP 118/89
[2019-07-28] MEDS: CEFEPIME 1,000 MG in DEXTROSE 5% WATER 50 ML IV SCH (12:04)
[2019-07-28] MEDS: CLONIDINE 0.2MG TABLET PO SCH ×2 (14:13→23:16)
[2019-07-28 15:38] VITALS: BP 128/79
[2019-07-28 20:39] VITALS: BP 138/67
[2019-07-29] VITALS: BP 143/86
[2019-07-29 04:00] VITALS: BP 103/76
[2019-07-29] MEDS: CLONIDINE 0.2MG TABLET PO SCH ×3 (06:47→21:37)
[2019-07-29] MEDS: BLOOD SUGAR DIAGNOSTIC STRIP TEST SCH ×4 (07:07→21:38)
[2019-07-29] MEDS: INSULIN LISPRO 100 UNITS/ML SUBCUT SCH ×4 (07:34→21:38)
[2019-07-29 07:55] LABS: PHOSPHORUS 5.3 mg/dL (2.5-4.9)
[2019-07-29 08:00] VITALS: BP 131/80
[2019-07-29] MEDS: METOPROLOL TARTRATE 100MG TABLET PO SCH ×2 (08:29→20:04)
[2019-07-29] MEDS: ASPIRIN 81MG TABLET PO SCH (08:29)
[2019-07-29] MEDS: AMLODIPINE 5MG TABLET PO SCH ×2 (08:30→20:04)
[2019-07-29] MEDS: LOSARTAN POTASSIUM 50 MG TABLET PO SCH ×2 (08:30→20:04)
[2019-07-29] MEDS: HEPARIN 5000 UNITS/ML VIAL SUBCUT SCH ×2 (11:13→20:04)
[2019-07-29] MEDS: FUROSEMIDE 40MG/4ML VIAL IVP SCH (11:13)
[2019-07-29 12:00] VITALS: BP 130/72
[2019-07-29 12:06] LABS: BASOPHILS % 0.7 % (0.0-2.0); EOSINOPHILS % 1.5 % (0.0-5.0); HEMATOCRIT. 31.7 % (42.0-52.0); HEMOGLOBIN. 10.2 g/dL (14.0-18.0); LYMPHOCYTES % 11.9 % (20.0-50.0); MEAN CORPUSCULAR HEMOGLOBIN 30.7 pg (28.0-32.0); MEAN PLATELET VOLUME 8.6 fl (7.4-10.4); MONOCYTES % 7.9 % (2.0-8.0); PLATELET 264 x1000/uL (130-400); RED BLOOD CELL COUNT 3.34 mill/uL (4.7-6.1)
[2019-07-29] MEDS: NYSTATIN 100,000 UNITS/ML 5ML UDC SSW SCH ×2 (12:20→17:11)
[2019-07-29 12:33] LABS: BG BASE EXCESS -0.5 mmol/L (-2.0-2.0); BG DEOXYHEMOGLOBIN 17.2 % (0.0-5.0); BG FRACTION INSPIRED OXYGEN 21; BG METHEMOGLOBIN 0.2 % (0.0-1.5); BG OXYGEN SATURATION 82.6 % (92.0-98.5); BG OXYHEMOGLOBIN 81.6 % (94.0-97.0); BG PCO2 44.4 mmHg (35.0-45.0); BG PH 7.368 (7.350-7.450); BG PO2 50.8 mmHg (75.0-100.0); BG SAMPLE SITE RIGHT RADIAL; BG TOTAL HEMOGLOBIN 10.9 g/dL (12.0-18.0); BG VENT MODE ROOM AIR
[2019-07-29 16:00] VITALS: BP 146/82
[2019-07-29] MEDS: CLONIDINE 0.1MG TABLET PO PRN (17:11)
[2019-07-29 19:56] VITALS: BP 134/76
[2019-07-30] VITALS: BP 148/77
[2019-07-30 04:00] VITALS: BP 148/79
[2019-07-30] MEDS: NYSTATIN 100,000 UNITS/ML 5ML UDC SSW SCH ×5 (05:42→23:02)
[2019-07-30] MEDS: BLOOD SUGAR DIAGNOSTIC STRIP TEST SCH ×4 (05:42→21:00)
[2019-07-30] MEDS: INSULIN LISPRO 100 UNITS/ML SUBCUT SCH ×4 (05:42→21:00)
[2019-07-30] MEDS: CLONIDINE 0.2MG TABLET PO SCH ×3 (05:43→21:53)
[2019-07-30 07:54] VITALS: BP 141/82
[2019-07-30] MEDS: ASPIRIN 81MG TABLET PO SCH (09:00)
[2019-07-30] MEDS: FUROSEMIDE 40MG/4ML VIAL IVP SCH ×2 (11:03→17:24)
[2019-07-30] MEDS: AMLODIPINE 5MG TABLET PO SCH ×2 (11:04→21:53)
[2019-07-30] MEDS: METOPROLOL TARTRATE 100MG TABLET PO SCH (11:04)
[2019-07-30] MEDS: HEPARIN 5000 UNITS/ML VIAL SUBCUT SCH ×2 (11:04→21:52)
[2019-07-30] MEDS: LOSARTAN POTASSIUM 50 MG TABLET PO SCH ×2 (11:05→21:52)
[2019-07-30 12:00] VITALS: BP 140/82
[2019-07-30] MEDS: CLONIDINE 0.1MG TABLET PO PRN ×2 (16:10→16:11)
[2019-07-30] MEDS: HYDRALAZINE HCL 50MG TABLET PO SCH ×2 (16:10→21:52)
[2019-07-30 20:00] VITALS: BP 139/81
[2019-07-30] MEDS: CARVEDILOL 12.5MG TABLET PO SCH (21:53)
[2019-07-31] VITALS: BP 129/80
[2019-07-31 04:00] VITALS: BP 131/78
[2019-07-31] MEDS: BLOOD SUGAR DIAGNOSTIC STRIP TEST SCH ×2 (05:20→12:40)
[2019-07-31] MEDS: INSULIN LISPRO 100 UNITS/ML SUBCUT SCH ×2 (05:20→13:10)
[2019-07-31] MEDS: HYDRALAZINE HCL 50MG TABLET PO SCH ×2 (05:31→15:08)
[2019-07-31] MEDS: CLONIDINE 0.2MG TABLET PO SCH ×2 (05:31→15:08)
[2019-07-31] MEDS: NYSTATIN 100,000 UNITS/ML 5ML UDC SSW SCH ×2 (05:31→12:18)
[2019-07-31 06:59] LABS: BASOPHILS % 1.4 % (0.0-2.0); EOSINOPHILS % 1.9 % (0.0-5.0); HEMATOCRIT. 31.4 % (42.0-52.0); HEMOGLOBIN. 10.3 g/dL (14.0-18.0); LYMPHOCYTES % 21.5 % (20.0-50.0); MEAN CORPUSCULAR VOLUME 94.9 fL (80.0-94.0); MEAN PLATELET VOLUME 8.6 fl (7.4-10.4); MONOCYTES % 8.3 % (2.0-8.0); NEUTROPHILS % 66.9 % (40.0-76.0); PLATELET 281 x1000/uL (130-400); RED BLOOD CELL COUNT 3.31 mill/uL (4.7-6.1); RED CELL DISTRIBUTION WIDTH 17.2 % (11.6-14.6)
[2019-07-31 08:00] VITALS: BP 151/78
[2019-07-31] MEDS: AMLODIPINE 5MG TABLET PO SCH (09:00)
[2019-07-31] MEDS: HEPARIN 5000 UNITS/ML VIAL SUBCUT SCH (09:00)
[2019-07-31] MEDS: FUROSEMIDE 40MG/4ML VIAL IVP SCH ×2 (09:00→17:13)
[2019-07-31] MEDS: ASPIRIN 81MG TABLET PO SCH (09:00)
[2019-07-31] MEDS: LOSARTAN POTASSIUM 50 MG TABLET PO SCH (09:00)
[2019-07-31] MEDS: CARVEDILOL 12.5MG TABLET PO SCH (09:00)
[2019-07-31 11:34] VITALS: BP 124/71
[2019-07-31 16:03] VITALS: BP 154/84
[2019-07-31 17:58] VITALS: BP 116/54
== END 2019-07-31 19:45 | disposition home or self-care (01) | DRG 720 ==
LOC: ER 14:52 → 7WST 17:25 → EDBEDREQ 17:38 → EDBEDREQSVC 17:38 → EDBEDREQTM 17:38 → ENRESERV 21:09 → CANRESERV 21:09 → ENRESERV 21:52
PROVIDERS: ADMIT Internal Medicine; ATTEND Internal Medicine
PROC: 5A1D70Z Performance of Urinary Filtration, Intermittent, Less than 6 Hours Per Day (ICD-10-PCS; principal; 2019-07-23)
PROC: 5A1D70Z Performance of Urinary Filtration, Intermittent, Less than 6 Hours Per Day (ICD-10-PCS; 2019-07-25)
PROC: 5A1D70Z Performance of Urinary Filtration, Intermittent, Less than 6 Hours Per Day (ICD-10-PCS; 2019-07-29)
PROC: 5A1D70Z Performance of Urinary Filtration, Intermittent, Less than 6 Hours Per Day (ICD-10-PCS; 2019-07-31)
DX: A41.51 Sepsis due to Escherichia coli [E. coli] (principal); J96.00 Acute respiratory failure, unspecified whether with hypoxia or hypercapnia; N39.0 Urinary tract infection, site not specified; I13.2 Hypertensive heart and chronic kidney disease with heart failure and with stage 5 chronic kidney disease, or end stage renal disease; E44.0 Moderate protein-calorie malnutrition; E87.1 Hypo-osmolality and hyponatremia; N18.6 End stage renal disease; E87.5 Hyperkalemia; I42.9 Cardiomyopathy, unspecified; B37.0 Candidal stomatitis; D63.8 Anemia in other chronic diseases classified elsewhere; F03.90 Unspecified dementia, unspecified severity, without behavioral disturbance, psychotic disturbance, mood disturbance, and anxiety; Z95.2 Presence of prosthetic heart valve; Z99.2 Dependence on renal dialysis; N40.0 Benign prostatic hyperplasia without lower urinary tract symptoms; I50.23 Acute on chronic systolic (congestive) heart failure; B96.89 Other specified bacterial agents as the cause of diseases classified elsewhere; Z88.0 Allergy status to penicillin; T82.848A Pain due to vascular prosthetic devices, implants and grafts, initial encounter; Z68.20 Body mass index [BMI] 20.0-20.9, adult
CPT/HCPCS: 36415; 36600; 71045; 80048; 80061; 80202; 80305; 81003; 82375; 82550; 82553; 82805; 82962; 83605; 83735; 84100; 84145; 84443; 84484; 87077; 87186; 93005; 93306; 93970; 93971; 94618; 99291; J0692; J1644; J1815; J1940; J2185; J2543; J3370; J7030; J7050; J7060